=== PATIENT | male | born 1970 | race Caucasian/White ===

== ENCOUNTER → 2019-03-31 | Outpatient (CLI) | payer BC, OTHER ==
[2019-03-31 12:58] LABS: BUN - BLOOD UREA NITROGEN 27 mg/dL (6-20); CALCIUM 8.9 mg/dL (8.5-10.3); CARBON DIOXIDE - CO2 19 mmol/L (21-32); CHLORIDE 108 mmol/L (101-111); CHOL/HDL RATIO 5.7 (<5.0); CHOLESTEROL 183 mg/dL; CREATININE 1.4 mg/dL (0.6-1.2); GFR - MDRD 54 (>89); GLUCOSE 130 mg/dL (70-100); HDL CHOLESTEROL 32 mg/dL; LDL CHOLESTEROL,CALCULATED 110 mg/dL; LDL/HDL RATIO 3.4 (<3.6); SODIUM 138 mmol/L (135-145); VLDL CHOLESTEROL 41 mg/dL
[2019-03-31 13:02] LABS: HB2 TOTAL 14.6 g/dL; HEMOGLOBIN A1C 1.08 g/dL; HEMOGLOBIN A1C % 8.9 % (4.6-6.2)
[2019-03-31 14:11] LABS: CREATININE,URINE 195.7 mg/dL; MICROALBUM/CREATININE RATIO,UR 2089.9 ug/mg (<30.0)
== END ==
LOC: LAB.WCP 08:00
PROVIDERS: ATTEND Family Medicine
DX: E11.65 Type 2 diabetes mellitus with hyperglycemia (principal); E78.5 Hyperlipidemia, unspecified
CPT/HCPCS: 36415; 80048; 80061; 82043; 82570; 83036; 83721

== ENCOUNTER 2019-06-09 07:50 | Outpatient (CLI) | payer BC ==
--- NOTE | 2019-06-12 10:24 | Ultrasound Report ---
Reason: DIABETES MELLITUS, TYPE II, UNCONTROLLED Procedure Date: 06/09/2019 Accession Number: [id number] / [id number] Procedure: US - Ankle Brachial Index CPT Code: FULL RESULT: EXAM: BILATERAL ANKLE/BRACHIAL INDEX EXAM DATE: 06/09/2019 09:34 AM. CLINICAL HISTORY: Diabetes mellitus, type II, uncontrolled. Hypertension, smoking, elevated cholesterol. Claudication. COMPARISON: None. TECHNIQUE: A blood pressure cuff and pulse volume recording Doppler ultrasound was used to evaluate the arterial pressures in the arms and ankle. No images were acquired. FINDINGS: Right Lower Extremity: CAR TRACER: PSV 31 cm/sec, monophasic. DPA: PSV 18 cm/sec, monophasic Left Lower Extremity: CAR TRACER: PSV 31 cm/sec, monophasic DPA: PSV 25 cm/sec, monophasic Systolic Pressures: Right brachial artery: 150/71. Right ankle: 118/67. Left brachial artery: 148/73. Left ankle: 119/42. Ankle/Arm Index: Right 0.79 Left 0.79 IMPRESSION: 1. Right ankle/brachial index: 0.79. 2. Left ankle/brachial index: 0.79. ANKLE/BRACHIAL INDEX REFERENCE STANDARDS 1.0-1.4: Normal 0.90-0.99: Borderline < 0.9: Abnormal RADIA
== END 2019-06-09 07:51 | disposition home or self-care (01) ==
LOC: DI 07:50
PROVIDERS: ATTEND Family Medicine
DX: E11.65 Type 2 diabetes mellitus with hyperglycemia (principal)
CPT/HCPCS: 93922

== ENCOUNTER 2019-06-23 15:11 | Outpatient (CLI) | payer BC ==
--- NOTE | 2019-06-27 09:38 | Ultrasound Report ---
Reason: PERIPHERAL ARTERY DISEASE Procedure Date: 06/23/2019 Accession Number: [id number] / [id number] Procedure: US - Duplex Lwr Ext Arterial Bilat CPT Code: FULL RESULT: EXAM: Bilateral Lower Extremity Arterial Doppler Ultrasound EXAM DATE: 06/23/2019 05:22 PM. CLINICAL HISTORY: Peripheral artery disease. COMPARISON: ANKLE BRACHIAL INDEX 06/09/2019 8:53 AM. TECHNIQUE: Real-time sonographic vascular imaging was performed by the mohs surgeon/general dermatologist, utilizing color-flow, Doppler flow, and spectral analysis. Multiple medical detail representative static images were saved for review. FINDINGS: Right Lower Extremity: POLITICAL RESEARCHER: PSV 120 cm/sec, triphasic. PSFA: PSV 114 cm/sec, monophasic. MSFA: PSV 84 cm/sec, triphasic. DSFA: PSV 184 cm/sec monophasic. PFA: PSV 220 cm/sec, monophasic. POP: PSV 166 cm/sec, monophasic. MEGHA: PSV 35 cm/sec, monophasic. VP BUSINESS DEVELOPMENT: PSV 40 cm/sec monophasic. BEBE: PSV 17 cm/sec, monophasic. DPA: PSV 30 cm/sec, monophasic. Left Lower Extremity: POLITICAL RESEARCHER: PSV 113 cm/sec, triphasic. PSFA: PSV 51 cm/sec, monophasic. MSFA: PSV 86 cm/sec, monophasic. DSFA: PSV 37 cm/sec, monophasic. PFA: PSV 84 cm/sec, monophasic. POP: PSV 90 cm/sec, biphasic. MEGHA: PSV 15 cm/sec, monophasic. VP BUSINESS DEVELOPMENT: PSV 33 cm/sec, monophasic. BEBE: PSV 13 cm/sec, monophasic. DPA: PSV 14 cm/sec, monophasic. IMPRESSION: 1. Diffuse atherosclerotic disease on the right with hemodynamically significant (> 50%) focal stenosis right distal SFA, profunda artery. Monophasic flow at the right popliteal artery, calf vessels. 2. Diffuse atherosclerotic disease on the left with evidence of hemodynamically significant (> 50%) focal stenosis at the popliteal artery. Monophasic flow at the proximal SFA through the calf vessels. 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 RADIA
== END 2019-06-23 15:12 | disposition home or self-care (01) ==
LOC: DI 15:11
PROVIDERS: ATTEND Family Medicine
DX: I70.203 Unspecified atherosclerosis of native arteries of extremities, bilateral legs (principal)
CPT/HCPCS: 93925

== ENCOUNTER 2019-12-29 08:13 | Outpatient (CLI) | payer BC ==
[2019-12-29 13:07] LABS: ALBUMIN 4.2 g/dL (3.2-5.5); ALBUMIN/GLOBULIN RATIO 1.3 (1.0-2.2); CREATININE 1.7 mg/dL (0.6-1.2); TOTAL PROTEIN 7.4 g/dL (6.7-8.2)
[2019-12-29 13:21] LABS: HEMOGLOBIN A1C 0.68 g/dL; HEMOGLOBIN A1C % 6.9 % (4.6-6.2)
== END 2019-12-29 23:59 | disposition home or self-care (01) ==
LOC: LAB.WCP 08:13
PROVIDERS: ATTEND Family Medicine
DX: E11.65 Type 2 diabetes mellitus with hyperglycemia (principal)
CPT/HCPCS: 36415; 80053; 83036

== ENCOUNTER 2020-01-10 08:00 | Outpatient (CLI) | payer BC | END 2020-01-10 23:59 | disposition home or self-care (01) | LOC: LAB.WCP 08:00 | PROVIDERS: ATTEND Family Medicine | DX: E78.5 Hyperlipidemia, unspecified (principal) | CPT/HCPCS: 36415; 84132 ==

== ENCOUNTER 2020-08-16 09:13 | Outpatient (CLI) | payer BC ==
[2020-08-16 13:06] LABS: BASOPHILS % (AUTO) 0.7 %; EOSINOPHILS # (AUTO) 0.2 10^3/uL (0.0-0.7); HGB - HEMOGLOBIN 11.7 g/dL (14.0-18.0); LYMPHOCYTES # (AUTO) 1.1 10^3/uL (1.5-3.5); LYMPHOCYTES % (AUTO) 26.6 %; MEAN CORPUSCULAR HGB CONC 34.4 g/dL (32.0-36.0); MEAN CORPUSCULAR VOLUME 87.2 fL (80.0-94.0); MEAN PLATELET VOLUME 12.2 fL (7.4-11.4); MONOCYTES # (AUTO) 0.4 10^3/uL (0.0-1.0); MONOCYTES % (AUTO) 9.3 %; NEUTROPHILS # (AUTO) 2.5 10^3/uL (1.5-6.6); NEUTROPHILS % (AUTO) 59.2 %; PLT - PLATELET COUNT 207 10^3/uL (130-450); RED CELL DISTRIBUTION WIDTH 12.9 % (12.0-15.0); WHITE BLOOD COUNT 4.3 x10^3/uL (4.8-10.8)
[2020-08-16 13:24] LABS: ALBUMIN 3.9 g/dL (3.2-5.5); ALBUMIN/GLOBULIN RATIO 1.2 (1.0-2.2); ALKALINE PHOSPHATASE 50 IU/L (42-121); ALT ALANINE AMINOTRANSFERASE 23 IU/L (10-60); AST ASPARTATE AMINOTRANSFERASE 20 IU/L (10-42); BILIRUBIN,TOTAL 0.6 mg/dL (0.2-1.0); BUN - BLOOD UREA NITROGEN 34 mg/dL (6-20); CALCIUM 9.5 mg/dL (8.5-10.3); CARBON DIOXIDE - CO2 22 mmol/L (21-32); CHLORIDE 109 mmol/L (101-111); CHOL/HDL RATIO 5.1 (<5.0); CHOLESTEROL 204 mg/dL; CREATININE 1.6 mg/dL (0.6-1.2); GLUCOSE 144 mg/dL (70-100); HDL CHOLESTEROL 40 mg/dL; LDL CHOLESTEROL,CALCULATED 128 mg/dL; LDL/HDL RATIO 3.2 (<3.6); SODIUM 139 mmol/L (135-145); TOTAL PROTEIN 7.1 g/dL (6.7-8.2); VLDL CHOLESTEROL 36 mg/dL
[2020-08-16 13:48] LABS: HEMOGLOBIN A1c% 7.8 % (4.27-6.07)
[2020-08-16 13:58] LABS: BILIRUBIN,URINE NEGATIVE (NEGATIVE); GLUCOSE, URINE (UA) NEGATIVE (NEGATIVE); KETONES,URINE (UA) NEGATIVE (NEGATIVE); LEUKOCYTE ESTERASE, URINE NEGATIVE (NEGATIVE); NITRITE,URINE NEGATIVE (NEGATIVE); OCCULT BLOOD,URINE SMALL (NEGATIVE); PH,URINE 5.5 PH (5.0-7.5); PROTEIN,URINE >=300 mg/dL (NEGATIVE); UROBILINOGEN,URINE 0.2 (NORMAL) E.U./dL (NORMAL)
[2020-08-16 14:24] LABS: BACTERIA,URINE None Seen /HPF (None Seen); CLARITY,URINE CLEAR (CLEAR); RBC,URINE 0-5 /HPF (0-5); SQUAMOUS EPITHELIAL CELL,UR NONE SEEN (<= Few)
[2020-08-16 14:33] LABS: CREATININE,URINE 129.4 mg/dL; MICROALBUM/CREATININE RATIO,UR 4227.2 ug/mg (<30.0)
== END 2020-08-16 23:59 | disposition home or self-care (01) ==
LOC: LAB.WCP 09:13
PROVIDERS: ATTEND Family Medicine
DX: E11.22 Type 2 diabetes mellitus with diabetic chronic kidney disease (principal); N18.30 Chronic kidney disease, stage 3 unspecified; Z12.5 Encounter for screening for malignant neoplasm of prostate
CPT/HCPCS: 36415; 80053; 80061; 81001; 82043; 82570; 83036; 83721; 84153; 84443; 85025

== ENCOUNTER 2021-02-20 08:00 | Outpatient (CLI) | payer BC ==
[2021-02-20 12:24] LABS: BASOPHILS % (AUTO) 0.5 %; EOSINOPHILS # (AUTO) 0.1 10^3/uL (0.0-0.7); EOSINOPHILS % (AUTO) 1.2 %; HCT - HEMATOCRIT 31.2 % (42.0-52.0); HGB - HEMOGLOBIN 10.6 g/dL (14.0-18.0); LYMPHOCYTES # (AUTO) 1.8 10^3/uL (1.5-3.5); LYMPHOCYTES % (AUTO) 26.8 %; MEAN CORPUSCULAR VOLUME 88.4 fL (80.0-94.0); MEAN PLATELET VOLUME 12.2 fL (7.4-11.4); MONOCYTES # (AUTO) 0.5 10^3/uL (0.0-1.0); MONOCYTES % (AUTO) 7.9 %; NEUTROPHILS # (AUTO) 4.2 10^3/uL (1.5-6.6); NEUTROPHILS % (AUTO) 63.3 %; PLT - PLATELET COUNT 247 10^3/uL (130-450); RED BLOOD COUNT 3.53 10^6/uL (4.70-6.10); RED CELL DISTRIBUTION WIDTH 13.3 % (12.0-15.0); WHITE BLOOD COUNT 6.6 x10^3/uL (4.8-10.8)
[2021-02-20 12:27] LABS: ESTIMATED AVERAGE GLUCOSE 203 mg/dL (70-100); HEMOGLOBIN A1c% 8.7 % (4.27-6.07)
[2021-02-20 12:32] LABS: ALBUMIN 3.9 g/dL (3.2-5.5); ALBUMIN/GLOBULIN RATIO 1.3 (1.0-2.2); ALKALINE PHOSPHATASE 56 IU/L (42-121); ALT ALANINE AMINOTRANSFERASE 24 IU/L (10-60); AST ASPARTATE AMINOTRANSFERASE 24 IU/L (10-42); BILIRUBIN,TOTAL 0.7 mg/dL (0.2-1.0); BUN - BLOOD UREA NITROGEN 43 mg/dL (6-20); CALCIUM 9.3 mg/dL (8.5-10.3); CARBON DIOXIDE - CO2 22 mmol/L (21-32); CHLORIDE 109 mmol/L (101-111); CHOL/HDL RATIO 4.4 (<5.0); CHOLESTEROL 185 mg/dL; CREATININE 1.8 mg/dL (0.6-1.2); GFR - MDRD 40 (>89); GLUCOSE 69 mg/dL (70-100); HDL CHOLESTEROL 42 mg/dL; LDL CHOLESTEROL,CALCULATED 114 mg/dL; LDL/HDL RATIO 2.7 (<3.6); POTASSIUM 4.5 mmol/L (3.5-5.0); SODIUM 139 mmol/L (135-145); TOTAL PROTEIN 6.9 g/dL (6.7-8.2); TRIGLYCERIDES 144 mg/dL; VLDL CHOLESTEROL 29 mg/dL
[2021-02-20 13:27] LABS: CREATININE,URINE 122.9 mg/dL; MICROALBUM/CREATININE RATIO,UR 2341.7 ug/mg (<30.0); MICROALBUMIN,URINE 287.8 mg/dL (0-300.0)
== END 2021-02-20 23:59 | disposition home or self-care (01) ==
LOC: LAB.WCP 08:00
PROVIDERS: ATTEND Family Medicine
DX: E11.8 Type 2 diabetes mellitus with unspecified complications (principal)
CPT/HCPCS: 36415; 80053; 80061; 82043; 82570; 83036; 83721; 85025

== ENCOUNTER 2021-06-26 08:00 | Outpatient (CLI) | payer OTHER ==
[2021-06-26 12:18] LABS: ALBUMIN 3.9 g/dL (3.2-5.5); ALBUMIN/GLOBULIN RATIO 1.1 (1.0-2.2); ALKALINE PHOSPHATASE 64 IU/L (42-121); ALT ALANINE AMINOTRANSFERASE 21 IU/L (10-60); AST ASPARTATE AMINOTRANSFERASE 20 IU/L (10-42); BILIRUBIN,TOTAL 0.8 mg/dL (0.2-1.0); BUN - BLOOD UREA NITROGEN 46 mg/dL (6-20); CALCIUM 9.5 mg/dL (8.5-10.3); CARBON DIOXIDE - CO2 22 mmol/L (21-32); CHLORIDE 111 mmol/L (101-111); CHOL/HDL RATIO 4.7 (<5.0); CHOLESTEROL 192 mg/dL; CREATININE 1.8 mg/dL (0.6-1.2); GFR - MDRD 40 (>89); GLUCOSE 112 mg/dL (70-100); HDL CHOLESTEROL 41 mg/dL; IRON 80 ug/dL (45-182); LDL CHOLESTEROL,CALCULATED 129 mg/dL; LDL/HDL RATIO 3.1 (<3.6); POTASSIUM 5.7 mmol/L (3.5-5.0); SODIUM 142 mmol/L (135-145); TOTAL PROTEIN 7.3 g/dL (6.7-8.2); TRIGLYCERIDES 108 mg/dL; VLDL CHOLESTEROL 22 mg/dL
[2021-06-26 12:29] LABS: EOSINOPHILS # (AUTO) 0.2 10^3/uL (0.0-0.7); EOSINOPHILS % (AUTO) 4.6 %; HCT - HEMATOCRIT 34.1 % (42.0-52.0); HGB - HEMOGLOBIN 11.2 g/dL (14.0-18.0); LYMPHOCYTES # (AUTO) 1.1 10^3/uL (1.5-3.5); LYMPHOCYTES % (AUTO) 26.5 %; MEAN CORPUSCULAR HEMOGLOBIN 28.8 pg (27.0-31.0); MEAN CORPUSCULAR HGB CONC 32.8 g/dL (32.0-36.0); MEAN CORPUSCULAR VOLUME 87.7 fL (80.0-94.0); MONOCYTES # (AUTO) 0.4 10^3/uL (0.0-1.0); MONOCYTES % (AUTO) 9.2 %; NEUTROPHILS # (AUTO) 2.4 10^3/uL (1.5-6.6); NEUTROPHILS % (AUTO) 58.5 %; PLT - PLATELET COUNT 284 10^3/uL (130-450); RED BLOOD COUNT 3.89 10^6/uL (4.70-6.10); RED CELL DISTRIBUTION WIDTH 14.6 % (12.0-15.0); WHITE BLOOD COUNT 4.1 x10^3/uL (4.8-10.8)
[2021-06-26 12:40] LABS: ESTIMATED AVERAGE GLUCOSE 249 mg/dL (70-100); HEMOGLOBIN A1c% 10.3 % (4.27-6.07)
== END 2021-06-26 23:59 | disposition home or self-care (01) ==
LOC: LAB.WCP 08:00
PROVIDERS: ATTEND Family Medicine
DX: D64.9 Anemia, unspecified (principal); E11.8 Type 2 diabetes mellitus with unspecified complications
CPT/HCPCS: 36415; 80053; 80061; 82728; 83036; 83540; 83721; 85025

== ENCOUNTER 2021-07-02 08:00 | Outpatient (CLI) | payer OTHER ==
[2021-07-02 12:13] LABS: CALCIUM 9.5 mg/dL (8.5-10.3); CREATININE 1.6 mg/dL (0.6-1.2); POTASSIUM 5.3 mmol/L (3.5-5.0)
== END 2021-07-02 23:59 | disposition home or self-care (01) ==
LOC: LAB.WCP 08:00
PROVIDERS: ATTEND Family Medicine
DX: E87.5 Hyperkalemia (principal)
CPT/HCPCS: 36415; 80048

== ENCOUNTER 2021-11-19 08:08 | Outpatient (CLI) | payer OTHER ==
[2021-11-19 12:42] LABS: CALCIUM 8.8 mg/dL (8.5-10.3); CREATININE 2.1 mg/dL (0.6-1.2); POTASSIUM 5.9 mmol/L (3.5-5.0)
[2021-11-19 12:48] LABS: ESTIMATED AVERAGE GLUCOSE 212 mg/dL (70-100)
== END 2021-11-19 08:09 | disposition home or self-care (01) ==
LOC: LAB.N 08:08
PROVIDERS: ATTEND Family Medicine
DX: E11.8 Type 2 diabetes mellitus with unspecified complications (principal)
CPT/HCPCS: 36415; 80048; 83036

== ENCOUNTER 2022-04-20 08:00 | Outpatient (CLI) | payer OTHER ==
[2022-04-20 20:22] LABS: CALCIUM 9.9 mg/dL (8.5-10.3); CREATININE 2.3 mg/dL (0.6-1.2); POTASSIUM 4.6 mmol/L (3.5-5.0)
[2022-04-21 09:35] LABS: ALBUMIN 3.3 g/dL (3.2-5.5); ALBUMIN/GLOBULIN RATIO 0.9 (1.0-2.2); BILIRUBIN,TOTAL 0.9 mg/dL (0.2-1.0); CALCIUM 9.7 mg/dL (8.5-10.3); CREATININE 2.3 mg/dL (0.6-1.2); POTASSIUM 4.7 mmol/L (3.5-5.0); TOTAL PROTEIN 6.9 g/dL (6.7-8.2)
== END 2022-04-20 23:59 | disposition home or self-care (01) ==
LOC: LAB.N 08:00
PROVIDERS: ATTEND Physician Assistant Medical
DX: N18.32 Chronic kidney disease, stage 3b (principal)
CPT/HCPCS: 36415; 80048; 80053

== ENCOUNTER 2022-06-11 10:34 | Outpatient (CLI) | payer OTHER | END 2022-06-11 10:35 | disposition home or self-care (01) | LOC: RT 10:34 | PROVIDERS: ATTEND Nurse Practitioner | DX: R06.02 Shortness of breath (principal); U09.9 Post COVID-19 condition, unspecified | CPT/HCPCS: 94060; 94729 ==

== ENCOUNTER 2022-08-18 08:18 | Outpatient (CLI) | payer OTHER ==
[2022-08-18 13:14] LABS: ESTIMATED AVERAGE GLUCOSE 255 mg/dL (70-100); HEMOGLOBIN A1c% 10.5 % (4.27-6.07)
[2022-08-18 13:31] LABS: CHOL/HDL RATIO 6.2 (<5.0); CHOLESTEROL 181 mg/dL; HDL CHOLESTEROL 29 mg/dL; TRIGLYCERIDES 584 mg/dL
[2022-08-18 14:00] LABS: MICROALBUM/CREATININE RATIO,UR 5281.7 ug/mg (<30.0)
[2022-08-18 14:26] LABS: LDL CHOLESTEROL,DIRECT 58 mg/dL
== END 2022-08-18 08:19 | disposition home or self-care (01) ==
LOC: LAB.N 08:18
PROVIDERS: ATTEND Nurse Practitioner
DX: E11.65 Type 2 diabetes mellitus with hyperglycemia (principal); Z51.81 Encounter for therapeutic drug level monitoring
CPT/HCPCS: 36415; 80061; 82043; 82570; 83036; 83721

== ENCOUNTER 2022-11-26 09:14 | Outpatient (CLI) | payer OTHER ==
[2022-11-26 12:45] LABS: BUN - BLOOD UREA NITROGEN 45 mg/dL (6-20); CALCIUM 9.5 mg/dL (8.5-10.3); CARBON DIOXIDE - CO2 26 mmol/L (21-32); CHLORIDE 107 mmol/L (101-111); CHOL/HDL RATIO 4.5 (<5.0); CHOLESTEROL 154 mg/dL; CREATININE 2.7 mg/dL (0.6-1.2); GFR - MDRD 25 (>89); GLUCOSE 280 mg/dL (70-100); HDL CHOLESTEROL 34 mg/dL; LDL CHOLESTEROL,CALCULATED 84 mg/dL; LDL/HDL RATIO 2.5 (<3.6); POTASSIUM 4.7 mmol/L (3.5-5.0); SODIUM 140 mmol/L (135-145); TRIGLYCERIDES 180 mg/dL; VLDL CHOLESTEROL 36 mg/dL
[2022-11-26 13:00] LABS: CREATININE,URINE 71.9 mg/dL; MICROALBUMIN,URINE 352.6 mg/dL (0-300.0)
[2022-11-26 14:05] LABS: ESTIMATED AVERAGE GLUCOSE 189 mg/dL (70-100); HEMOGLOBIN A1c% 8.2 % (4.27-6.07)
== END 2022-11-26 09:15 | disposition home or self-care (01) ==
LOC: LAB.N 09:14
PROVIDERS: ATTEND Nurse Practitioner
DX: E11.65 Type 2 diabetes mellitus with hyperglycemia (principal); E78.2 Mixed hyperlipidemia
CPT/HCPCS: 36415; 80048; 80061; 82043; 82570; 83036; 83721